=== PATIENT | female | born 1975 | race Caucasian/White ===

== ENCOUNTER 2016-08-30 19:45 | Emergency (ER) | payer OTHER ==
[~2016-08-30] VITALS: Ht 154.9 cm; Wt 54.1 kg
[2016-08-30 20:16] VITALS: BP 137/95
[2016-08-30] MEDS ORDERED: NORCO 5/3251 TABLET PO (21:08)
[2016-08-30] MEDS ORDERED: SKELAXIN800 MG PO (21:08)
== END 2016-08-30 21:41 | disposition home or self-care (01) ==
LOC: EXP 19:45 → EME 19:45 → EXP 21:41
DX: S30.0XXA Contusion of lower back and pelvis, initial encounter (principal); S60.221A Contusion of right hand, initial encounter; W19.XXXA Unspecified fall, initial encounter; Y93.54 Activity, bowling; F17.200 Nicotine dependence, unspecified, uncomplicated
CPT/HCPCS: 73130; 99281; 99284

== ENCOUNTER 2016-09-05 13:38 | Emergency (ER) | payer OTHER ==
[~2016-09-05] VITALS: Ht 157.5 cm; Wt 55.2 kg
[~2016-09-05 13:38] MED LIST: NORCO 5/3251 TABLET PO; SKELAXIN800 MG PO
[2016-09-05 15:03] VITALS: BP 123/78
== END 2016-09-05 15:04 | disposition home or self-care (01) ==
LOC: EME 13:38
DX: G89.29 Other chronic pain (principal); M54.9 Dorsalgia, unspecified; Z02.89 Encounter for other administrative examinations; F17.200 Nicotine dependence, unspecified, uncomplicated
CPT/HCPCS: 99281; 99283

== ENCOUNTER 2016-10-09 21:42 | Emergency (ER) | payer OTHER ==
[~2016-10-09] VITALS: Ht 157.5 cm; Wt 54.6 kg
[2016-10-10] MEDS ORDERED: PERCOCET 5/31 TABLET PO (00:03)
[2016-10-10 00:16] VITALS: BP 120/82
== END 2016-10-10 00:38 | disposition home or self-care (01) ==
LOC: EXP 21:42 → EME 21:42 → EXP 10-10 00:38
DX: M54.12 Radiculopathy, cervical region (principal); F17.200 Nicotine dependence, unspecified, uncomplicated
CPT/HCPCS: 72040; 99281; 99283; J1100

== ENCOUNTER 2016-11-14 23:55 | Emergency (ER) | payer OTHER ==
[~2016-11-14] VITALS: Ht 157.5 cm; Wt 57.8 kg
[~2016-11-14 23:55] MED LIST changes: +PERCOCET 5/31 TABLET PO
[2016-11-15 00:15] VITALS: BP 127/89
[2016-11-15] MEDS ORDERED: KEFLEX500 MG PO (01:08)
== END 2016-11-15 01:25 | disposition home or self-care (01) ==
LOC: EME 23:55
DX: S51.812A Laceration without foreign body of left forearm, initial encounter (principal); W25.XXXA Contact with sharp glass, initial encounter; Y99.0 Civilian activity done for income or pay; Z23 Encounter for immunization; F17.200 Nicotine dependence, unspecified, uncomplicated
CPT/HCPCS: 99281; 99284